=== PATIENT | female | born 1940 | race Caucasian/White ===

== ENCOUNTER 2022-11-24 10:19 | Emergency (ER) | payer MEDICARE ==
[~2022-11-24] VITALS: Ht 152.4 cm; Wt 66.2 kg
[2022-11-24 10:50] LABS: BASOPHILS # (AUTO) 0.1 (0.0-0.1); BASOPHILS % 0.4 % (0.0-1.0); EOSINOPHILS # (AUTO) 0.1 (0.0-0.4); EOSINOPHILS % 0.5 % (0.0-6.0); HEMATOCRIT 47.9 % (34.2-44.1); HEMOGLOBIN 15.6 g/dL (12.0-16.0); LYMPHOCYTES # (AUTO) 1.1 (1.0-3.2); LYMPHOCYTES % 8.9 % (18.0-39.1); MEAN CORPUSCULAR HEMOGLOBIN 29.2 pg (28-32); MEAN CORPUSCULAR HGB CONC 32.6 g/dL (31-35); MEAN CORPUSCULAR VOLUME 89.5 fL (81-99); MONOCYTES # (AUTO) 0.7 (0.2-0.8); MONOCYTES % 5.6 % (4.4-11.3); NEUTROPHILS # (AUTO) 10.7 (2.1-6.9); NEUTROPHILS % 84.1 % (38.7-80.0); PLATELET COUNT 228 x10e3/uL (140-360); RED BLOOD COUNT 5.35 x10e6/uL (3.6-5.1); RED CELL DISTRIBUTION WIDTH 12.8 % (11.7-14.4)
[2022-11-24 11:09] LABS: ALBUMIN 3.7 g/dL (3.5-5.0); ANION GAP 12.7 mmol/L (8-16); CALCIUM 9.4 mg/dL (8.4-10.2); CREATININE, SERUM 0.81 mg/dL (0.57-1.11); POTASSIUM 3.7 mmol/L (3.5-5.1)
== END 2022-11-24 12:43 | disposition home or self-care (01) ==
LOC: ER 10:23
DX: M62.50 Muscle wasting and atrophy, not elsewhere classified, unspecified site (principal); R07.81 Pleurodynia; Z88.8 Allergy status to other drugs, medicaments and biological substances; I10 Essential (primary) hypertension; E03.9 Hypothyroidism, unspecified; Z91.81 History of falling
CPT/HCPCS: 36415; 71045; 72170; 80053; 85025; 93005; 99285; U0002

== ENCOUNTER 2022-11-26 20:35 | Inpatient (IN) | payer MEDICARE ==
[~2022-11-26] VITALS: Ht 152.4 cm; Wt 65.3 kg
[2022-11-26] MEDS ORDERED: ONDANSETRON HCL INJ 2MG/ML 2ML 2 MG/ML VIAL IV STA (21:05)
[2022-11-26] MEDS ORDERED: Morphine 4mg INJECTION 4 MG/ML INJ IV ONE (21:05)
[2022-11-26] MEDS ORDERED: ONDANSETRON HCL INJ 2MG/ML 2ML 2 MG/ML VIAL ONE (21:07)
[2022-11-26] MEDS ORDERED: SODIUM CHLORIDE 0.9% 1000ML 1,000 ML ONE (21:07)
[2022-11-26] MEDS ORDERED: Morphine 4mg INJECTION 4 MG/ML INJ ONE (21:07)
[2022-11-26] MEDS ORDERED: METHYLPREDNISOLONE SOD SUCC 125 MG/2ML VIAL IV STA (21:17)
[2022-11-26] MEDS ORDERED: ALBUTEROL/IPRATROPIUM 3 ML NEB NEB STA (21:17)
[2022-11-26 21:24] LABS: BASOPHILS % 0.2 % (0.0-1.0); HEMATOCRIT 45.5 % (34.2-44.1); HEMOGLOBIN 14.9 g/dL (12.0-16.0); LYMPHOCYTES # (AUTO) 0.9 (1.0-3.2); LYMPHOCYTES % 4.4 % (18.0-39.1); MEAN CORPUSCULAR HEMOGLOBIN 29.2 pg (28-32); MEAN CORPUSCULAR HGB CONC 32.7 g/dL (31-35); MEAN CORPUSCULAR VOLUME 89.2 fL (81-99); MONOCYTES # (AUTO) 0.7 (0.2-0.8); MONOCYTES % 3.3 % (4.4-11.3); NEUTROPHILS # (AUTO) 19.3 (2.1-6.9); NEUTROPHILS % 90.5 % (38.7-80.0); PLATELET COUNT 264 x10e3/uL (140-360); RED CELL DISTRIBUTION WIDTH 13.1 % (11.7-14.4)
[2022-11-26 21:33] LABS: AMPHETAMINES SCREEN,URINE NEGATIVE (NEGATIVE); BENZODIAZEPINES SCREEN,URINE NEGATIVE (NEGATIVE); PHENCYCLIDINE SCREEN,URINE NEGATIVE (NEGATIVE)
[2022-11-26 21:41] LABS: ALBUMIN 3.2 g/dL (3.5-5.0); ALBUMIN/GLOBULIN RATIO 0.7 (0.8-2.0); ANION GAP 17.3 mmol/L (8-16); CALCIUM 9.6 mg/dL (8.4-10.2); CREATININE, SERUM 1.04 mg/dL (0.57-1.11); POTASSIUM 3.3 mmol/L (3.5-5.1)
[2022-11-26 21:47] LABS: CREATINE KINASE MB 0.7 ng/mL (0-5.0)
[2022-11-26] MEDS ORDERED: PIPERACILLIN/TAZOBACTAM 3.375 GM VIAL ONE (22:34)
[2022-11-26] MEDS ORDERED: Morphine 4mg INJECTION 4 MG/ML INJ IV STA (22:38)
[2022-11-27] VITALS (29 sets, daily range): BP systolic 99–141; BP diastolic 55–77
[2022-11-27] MEDS ORDERED: SODIUM CHLORIDE 0.9% 1000ML 1,000 ML IV ONE
[2022-11-27] MEDS ORDERED: IOPAMIDOL 370 MG/ML 100 ML INFUS..BTL INJ ONE (00:13)
[2022-11-27] MEDS ORDERED: FENTANYL CITRATE/PF 100MCG/2 ML INJ IV STA (01:48)
[2022-11-27] MEDS ORDERED: ONDANSETRON HCL INJ 2MG/ML 2ML 2 MG/ML VIAL ONE (02:05)
[2022-11-27] MEDS ORDERED: FENTANYL CITRATE/PF 100MCG/2 ML INJ ONE (02:05)
[2022-11-27 02:40] LABS: ABG PCO2 52 mmHg (35-45); ABG PH 7.22 (7.35-7.45)
[2022-11-27 02:41] LABS: ABG HCO3 21 mmol/L (22-26); ABG PO2 69 mmHg (80-105); ABG TCO2 23
[2022-11-27] MEDS ORDERED: AMLODIPINE BESY10 MG (03:18)
[2022-11-27] MEDS ORDERED: LEVOTHYROXINE50 MC1 (03:18)
[2022-11-27] MEDS ORDERED: PANTOPRAZOLE SO40 MG (03:18)
[2022-11-27 03:55] LABS: ABG HCO3 23 mmol/L (22-26); ABG PCO2 49 mmHg (35-45); ABG PH 7.27 (7.35-7.45); ABG PO2 232 mmHg (80-105); ABG TCO2 24
[2022-11-27] MEDS ORDERED: GUAIFENESIN/DEXTROMETHORPHAN LIQD 5 ML UDC PO PRN (04:00)
[2022-11-27] MEDS ORDERED: POTASSIUM CHLORIDE 20 MEQ TAB CR PO PRN (04:00)
[2022-11-27] MEDS ORDERED: ALBUTEROL SULF 0.083% NEB SOLN 3 ML NEB NEB PRN (04:00)
[2022-11-27] MEDS ORDERED: MELATONIN 3 MG TAB PO PRN (04:00)
[2022-11-27] MEDS ORDERED: HYDRALAZINE HCL 20 MG/ML VIAL IV PRN (04:00)
[2022-11-27] MEDS ORDERED: ACETAMINOPHEN 325 MG SUPP PR PRN (04:00)
[2022-11-27] MEDS ORDERED: LACTATED RINGER'S 1,000 ML INJ ONE (04:00)
[2022-11-27] MEDS ORDERED: Vancomycin IV 1 GM in SODIUM CHLORIDE 0.9% 250ML 250 ML IV ONE (04:00)
[2022-11-27] MEDS ORDERED: DEXTROSE 50% SYRINGE 50 ML IV PRN (04:15)
[2022-11-27] MEDS: DEXTROSE 5%/0.9% SOD CHL 1,000 ML IV SCH ×2 (05:15→17:30)
[2022-11-27] MEDS: LEVOTHYROXINE SODIUM 50 MCG TAB PO SCH (05:15)
[2022-11-27] MEDS: INSULIN REGULAR, HUMAN 100 UNIT/1 ML SQ SCH ×4 (07:30→20:01)
[2022-11-27 07:52] LABS: BASOPHILS % 0.2 % (0.0-1.0); HEMATOCRIT 38.7 % (34.2-44.1); HEMOGLOBIN 12.3 g/dL (12.0-16.0); LYMPHOCYTES # (AUTO) 0.3 (1.0-3.2); LYMPHOCYTES % 2.9 % (18.0-39.1); MEAN CORPUSCULAR HEMOGLOBIN 28.9 pg (28-32); MEAN CORPUSCULAR HGB CONC 31.8 g/dL (31-35); MEAN CORPUSCULAR VOLUME 91.1 fL (81-99); MONOCYTES # (AUTO) 0.3 (0.2-0.8); MONOCYTES % 2.6 % (4.4-11.3); NEUTROPHILS # (AUTO) 9.5 (2.1-6.9); NEUTROPHILS % 94.2 % (38.7-80.0); PLATELET COUNT 179 x10e3/uL (140-360); RED BLOOD COUNT 4.25 x10e6/uL (3.6-5.1); RED CELL DISTRIBUTION WIDTH 13.2 % (11.7-14.4)
[2022-11-27 08:21] LABS: ALBUMIN 2.1 g/dL (3.5-5.0); ALBUMIN/GLOBULIN RATIO 0.7 (0.8-2.0); ANION GAP 13.5 mmol/L (8-16); CALCIUM 7.8 mg/dL (8.4-10.2); CREATINE KINASE 47 IU/L (29-168); CREATININE, SERUM 0.78 mg/dL (0.57-1.11); POTASSIUM 3.5 mmol/L (3.5-5.1)
[2022-11-27] MEDS ORDERED: SODIUM CHLORIDE 0.9% 500ML 500 ML ONE (08:33)
[2022-11-27 08:47] LABS: FREE THYROXINE INDEX 1.5658 (1.4-3.8); THYROID STIMULATING HORMONE 1.813 uIU/mL (0.350-4.940)
[2022-11-27 09:00] LABS: ABG HCO3 22 mmol/L (22-26); ABG PCO2 46 mmHg (35-45); ABG PH 7.29 (7.35-7.45); ABG PO2 202 mmHg (80-105); ABG TCO2 24
[2022-11-27] MEDS ORDERED: FAMOTIDINE 20 MG/2 ML VIAL IV SCH (09:00)
[2022-11-27] MEDS: HEPARIN SOD (PORCINE) 5,000 UNIT/ML VIAL SC SCH ×2 (09:00→20:05)
[2022-11-27 10:58] LABS: BAND NEUTROPHILS % (MANUAL) 5 %; LYMPHOCYTES % (MANUAL) 4 % (19-48); METAMYELOCYTES % (MANUAL) 1 % (0-0); MONOCYTES % (MANUAL) 4 % (3.4-9.0); NEUTROPHILS % (MANUAL) 86 % (40-74); PLATELET ESTIMATE ADEQUATE; PLATELET MORPHOLOGY COMMENT NORMAL; RBC MORPHOLOGY COMMENT NORMAL
[2022-11-27] MEDS ORDERED: LACTATED RINGER'S 500 ML IV ONE (11:45)
[2022-11-27 11:54] LABS: CLARITY,URINE SL CLOUDY (CLEAR); COLOR,URINE YELLOW (YELLOW); LEUKOCYTE ESTERASE ,URINE NEGATIVE (NEGATIVE); NITRITE,URINE NEGATIVE (NEGATIVE); PROTEIN,URINE DIPSTICK 1+ (NEGATIVE)
[2022-11-27 11:55] LABS: KETONES,URINE NEGATIVE (NEGATIVE); URINE UROBILINOGEN 1 mg/dL (0.2 - 1)
[2022-11-27 11:56] LABS: BACTERIA,URINE FEW /HPF; EPITHELIAL CELLS,URINE MODERATE /LPF
[2022-11-27] MEDS: FAMOTIDINE 20 MG/2 ML VIAL IV SCH (12:19)
[2022-11-27 17:37] LABS: CREATINE KINASE MB 1.9 ng/mL (0-5.0)
[2022-11-27] MEDS: Morphine 2mg Syringe 2 MG/ML SYR IV PRN (22:17)
[2022-11-28] VITALS (55 sets, daily range): BP systolic 85–137; BP diastolic 39–103
[2022-11-28] MEDS: LEVOTHYROXINE SODIUM 50 MCG TAB PO SCH (05:10)
[2022-11-28] MEDS: Morphine 2mg Syringe 2 MG/ML SYR IV PRN ×2 (05:12→12:59)
[2022-11-28 06:37] LABS: BASOPHILS # (AUTO) 0.1 (0.0-0.1); BASOPHILS % 0.6 % (0.0-1.0); HEMOGLOBIN 11.8 g/dL (12.0-16.0); LYMPHOCYTES # (AUTO) 0.2 (1.0-3.2); LYMPHOCYTES % 2.2 % (18.0-39.1); MEAN CORPUSCULAR HEMOGLOBIN 29.5 pg (28-32); MEAN CORPUSCULAR HGB CONC 31.9 g/dL (31-35); MEAN CORPUSCULAR VOLUME 92.5 fL (81-99); MONOCYTES # (AUTO) 0.4 (0.2-0.8); MONOCYTES % 3.8 % (4.4-11.3); NEUTROPHILS % 92.8 % (38.7-80.0); PLATELET COUNT 166 x10e3/uL (140-360); RED CELL DISTRIBUTION WIDTH 13.2 % (11.7-14.4)
[2022-11-28 07:08] LABS: ALBUMIN 1.9 g/dL (3.5-5.0); ALBUMIN/GLOBULIN RATIO 0.5 (0.8-2.0); ANION GAP 13.9 mmol/L (8-16); CALCIUM 8.9 mg/dL (8.4-10.2); CREATININE, SERUM 0.74 mg/dL (0.57-1.11); POTASSIUM 3.9 mmol/L (3.5-5.1)
[2022-11-28] MEDS: INSULIN REGULAR, HUMAN 100 UNIT/1 ML SQ SCH ×4 (07:30→20:20)
[2022-11-28 07:52] LABS: BAND NEUTROPHILS % (MANUAL) 5 %; LYMPHOCYTES % (MANUAL) 2 % (19-48); MONOCYTES % (MANUAL) 1 % (3.4-9.0); NEUTROPHILS % (MANUAL) 92 % (40-74)
[2022-11-28 07:53] LABS: PLATELET ESTIMATE ADEQUATE; PLATELET MORPHOLOGY COMMENT NORMAL; RBC MORPHOLOGY COMMENT NORMAL
[2022-11-28] MEDS: FAMOTIDINE 20 MG/2 ML VIAL IV SCH (10:27)
[2022-11-28] MEDS: HEPARIN SOD (PORCINE) 5,000 UNIT/ML VIAL SC SCH ×2 (10:28→21:00)
[2022-11-28] MEDS: ONDANSETRON HCL INJ 2MG/ML 2ML 2 MG/ML VIAL IV PRN ×2 (12:59→13:06)
[2022-11-28] MEDS ORDERED: VECURONIUM BROMIDE FOR INJ 20 MG VIAL ONE (13:11)
[2022-11-28] MEDS ORDERED: MIDAZOLAM HCL 2 MG/2 ML VIAL ONE (13:11)
[2022-11-28] MEDS ORDERED: SUCCINYLCHOLINE CHLORIDE 20 MG/ML 10ML VIAL ONE (13:11)
[2022-11-28] MEDS ORDERED: WATER STERILE 10 ML VIAL ONE (13:11)
[2022-11-28] MEDS ORDERED: ETOMIDATE 2 MG/ML 10 ML INJ IV ONE (13:11)
[2022-11-28] MEDS: DEXTROSE 5%/0.9% SOD CHL 1,000 ML IV SCH ×3 (13:59→21:31)
[2022-11-29] VITALS (51 sets, daily range): BP systolic 79–131; BP diastolic 49–95
[2022-11-29] MEDS: LEVOTHYROXINE SODIUM 50 MCG TAB PO SCH (06:00)
[2022-11-29 06:18] LABS: BASOPHILS % 0.1 % (0.0-1.0); HEMATOCRIT 34.1 % (34.2-44.1); HEMOGLOBIN 10.5 g/dL (12.0-16.0); LYMPHOCYTES # (AUTO) 0.6 (1.0-3.2); LYMPHOCYTES % 5.7 % (18.0-39.1); MEAN CORPUSCULAR HEMOGLOBIN 28.8 pg (28-32); MEAN CORPUSCULAR HGB CONC 30.8 g/dL (31-35); MEAN CORPUSCULAR VOLUME 93.7 fL (81-99); MONOCYTES # (AUTO) 0.3 (0.2-0.8); MONOCYTES % 3.4 % (4.4-11.3); NEUTROPHILS # (AUTO) 8.8 (2.1-6.9); NEUTROPHILS % 90.5 % (38.7-80.0); PLATELET COUNT 168 x10e3/uL (140-360); RED BLOOD COUNT 3.64 x10e6/uL (3.6-5.1); RED CELL DISTRIBUTION WIDTH 13.6 % (11.7-14.4)
[2022-11-29 06:37] LABS: ALBUMIN 1.7 g/dL (3.5-5.0); ALBUMIN/GLOBULIN RATIO 0.5 (0.8-2.0); ANION GAP 10.1 mmol/L (8-16); CALCIUM 7.2 mg/dL (8.4-10.2); CREATININE, SERUM 0.6 mg/dL (0.57-1.11); POTASSIUM 3.1 mmol/L (3.5-5.1)
[2022-11-29] MEDS: INSULIN REGULAR, HUMAN 100 UNIT/1 ML SQ SCH ×4 (07:30→23:57)
[2022-11-29] MEDS: FAMOTIDINE 20 MG/2 ML VIAL IV SCH (08:55)
[2022-11-29] MEDS ORDERED: ETOMIDATE 2 MG/ML 10 ML INJ IV ONE (10:54)
[2022-11-29] MEDS ORDERED: LIDOCAINE HCL 2% LOCAL INJ 5 ML SDV VIAL INJ ONE (10:54)
[2022-11-29] MEDS ORDERED: ROCURONIUM BROMIDE 10 MG/ML 5ML VIAL IV ONE (10:54)
[2022-11-29] MEDS ORDERED: ONDANSETRON HCL INJ 2MG/ML 2ML 2 MG/ML VIAL ONE (10:54)
[2022-11-29] MEDS ORDERED: SEVOFLURANE INHAL SOLN 250 ML PEN BTL ONE (10:54)
[2022-11-29] MEDS ORDERED: EPHEDRINE SULFATE INJ 50 MG/ML VIAL ONE (10:54)
[2022-11-29] MEDS ORDERED: PROPOFOL IV EMULSION 10 MG/ML 20 ML VIAL ONE (10:54)
[2022-11-29] MEDS ORDERED: POVIDONE IODINE 0.05% 0.05 % ML PO ONE (10:54)
[2022-11-29] MEDS ORDERED: BUPIVACAINE 0.5%/EPI 30 ML SDV INJ ONE (12:57)
[2022-11-29] MEDS ORDERED: FENTANYL CITRATE/PF 100MCG/2 ML INJ ONE ×2 (13:31→15:40)
[2022-11-29] MEDS ORDERED: SUGAMMADEX SODIUM 200 MG/2 ML VIAL IV ONE (14:18)
[2022-11-29] MEDS ORDERED: SODIUM CHLORIDE 0.9% 1000ML 1,000 ML IV SCH (15:00)
[2022-11-29] MEDS: POTASSIUM CHLORIDE 20MEQ/100ML 100 ML IV SCH ×2 (15:49→15:53)
[2022-11-29] MEDS: ACETAMINOPHEN 1000 MG/100 ML IV PRN (16:13)
[2022-11-29] MEDS ORDERED: FENTANYL 2000MCG/NS 250 250 ML IV PRN (16:30)
[2022-11-29] MEDS ORDERED: PROPOFOL IV EMULSION 10MG/ML 100 ML IV PRN (16:30)
[2022-11-29] MEDS: SODIUM CHLORIDE 0.45% 1,000 ML IV SCH (17:14)
[2022-11-29 17:18] LABS: ABG HCO3 28 mmol/L (22-26); ABG PCO2 56 mmHg (35-45); ABG PH 7.31 (7.35-7.45); ABG PO2 71 mmHg (80-105); ABG TCO2 29
[2022-11-29 18:01] LABS: ABG HCO3 25 mmol/L (22-26); ABG PCO2 35 mmHg (35-45); ABG PH 7.46 (7.35-7.45); ABG PO2 92 mmHg (80-105); ABG TCO2 26
[2022-11-30] VITALS (44 sets, daily range): BP systolic 99–138; BP diastolic 49–101
[2022-11-30] MEDS: SODIUM CHLORIDE 0.45% 1,000 ML IV SCH ×3 (02:10→19:51)
[2022-11-30] MEDS: INSULIN REGULAR, HUMAN 100 UNIT/1 ML SQ SCH ×3 (06:00→17:26)
[2022-11-30 06:34] LABS: BASOPHILS % 0.1 % (0.0-1.0); HEMATOCRIT 29.2 % (34.2-44.1); HEMOGLOBIN 9.2 g/dL (12.0-16.0); LYMPHOCYTES # (AUTO) 0.7 (1.0-3.2); MEAN CORPUSCULAR HGB CONC 31.5 g/dL (31-35); MEAN CORPUSCULAR VOLUME 92.1 fL (81-99); MONOCYTES # (AUTO) 0.3 (0.2-0.8); MONOCYTES % 3.4 % (4.4-11.3); NEUTROPHILS # (AUTO) 6.4 (2.1-6.9); PLATELET COUNT 156 x10e3/uL (140-360); RED BLOOD COUNT 3.17 x10e6/uL (3.6-5.1); RED CELL DISTRIBUTION WIDTH 13.4 % (11.7-14.4)
[2022-11-30 07:40] LABS: ALBUMIN 1.7 g/dL (3.5-5.0); ALBUMIN/GLOBULIN RATIO 0.6 (0.8-2.0); ANION GAP 13.9 mmol/L (8-16); CALCIUM 7.4 mg/dL (8.4-10.2); CREATININE, SERUM 0.66 mg/dL (0.57-1.11)
[2022-11-30 07:43] LABS: POTASSIUM 2.9 mmol/L (3.5-5.1)
[2022-11-30] MEDS ORDERED: POTASSIUM CHLORIDE 20MEQ/100ML 200 ML IV ONE ×2 (07:45→17:00)
[2022-11-30] MEDS: MUPIROCIN 2% OINT 22 GM TUBE TOP SCH ×2 (09:25→19:51)
[2022-11-30] MEDS: ACETAMINOPHEN 1000 MG/100 ML IV PRN (10:39)
[2022-11-30 12:11] LABS: ABG PCO2 34 mmHg (35-45); ABG PH 7.43 (7.35-7.45)
[2022-11-30 12:12] LABS: ABG HCO3 23 mmol/L (22-26); ABG PO2 93 mmHg (80-105); ABG TCO2 24
[2022-11-30 14:31] LABS: ABG HCO3 22 mmol/L (22-26); ABG PCO2 33 mmHg (35-45); ABG PH 7.42 (7.35-7.45); ABG PO2 88 mmHg (80-105); ABG TCO2 23
[2022-11-30] MEDS: HYDROMORPHONE 1MG/1ML INJ IV PRN (19:52)
[2022-12-01] VITALS (21 sets, daily range): BP systolic 99–136; BP diastolic 49–85
[2022-12-01] MEDS: HYDROMORPHONE 1MG/1ML INJ IV PRN ×2 (00:13→21:28)
[2022-12-01] MEDS: SODIUM CHLORIDE 0.45% 1,000 ML IV SCH (05:04)
[2022-12-01] MEDS: INSULIN REGULAR, HUMAN 100 UNIT/1 ML SQ SCH ×4 (06:00→16:53)
[2022-12-01 06:48] LABS: BASOPHILS % 0.1 % (0.0-1.0); EOSINOPHILS # (AUTO) 0.1 (0.0-0.4); EOSINOPHILS % 1.1 % (0.0-6.0); HEMATOCRIT 32.8 % (34.2-44.1); HEMOGLOBIN 10.6 g/dL (12.0-16.0); LYMPHOCYTES # (AUTO) 0.8 (1.0-3.2); LYMPHOCYTES % 10.4 % (18.0-39.1); MEAN CORPUSCULAR HEMOGLOBIN 29.1 pg (28-32); MEAN CORPUSCULAR HGB CONC 32.3 g/dL (31-35); MEAN CORPUSCULAR VOLUME 90.1 fL (81-99); MONOCYTES # (AUTO) 0.3 (0.2-0.8); MONOCYTES % 4.1 % (4.4-11.3); NEUTROPHILS # (AUTO) 6.2 (2.1-6.9); NEUTROPHILS % 83.1 % (38.7-80.0); PLATELET COUNT 175 x10e3/uL (140-360); RED BLOOD COUNT 3.64 x10e6/uL (3.6-5.1); RED CELL DISTRIBUTION WIDTH 13.6 % (11.7-14.4)
[2022-12-01 07:07] LABS: ALBUMIN 1.7 g/dL (3.5-5.0); ALBUMIN/GLOBULIN RATIO 0.6 (0.8-2.0); ANION GAP 10.6 mmol/L (8-16); CALCIUM 7.4 mg/dL (8.4-10.2); CREATININE, SERUM 0.6 mg/dL (0.57-1.11)
[2022-12-01 07:12] LABS: POTASSIUM 3.6 mmol/L (3.5-5.1)
[2022-12-01] MEDS: MUPIROCIN 2% OINT 22 GM TUBE TOP SCH ×2 (08:09→19:15)
[2022-12-01] MEDS: ONDANSETRON HCL INJ 2MG/ML 2ML 2 MG/ML VIAL IV PRN (13:59)
[2022-12-01 15:19] LABS: ABG HCO3 23 mmol/L (22-26); ABG PCO2 35 mmHg (35-45); ABG PH 7.42 (7.35-7.45); ABG PO2 97 mmHg (80-105); ABG TCO2 24
[2022-12-01] MEDS: D5.45%NS/KCL 20MEQ 1,000 ML IV SCH (15:47)
[2022-12-02] VITALS (23 sets, daily range): BP systolic 104–159; BP diastolic 60–121
[2022-12-02] MEDS: D5.45%NS/KCL 20MEQ 1,000 ML IV SCH ×2 (03:05→16:17)
[2022-12-02] MEDS: HYDROMORPHONE 1MG/1ML INJ IV PRN ×2 (04:10→20:15)
[2022-12-02] MEDS: INSULIN REGULAR, HUMAN 100 UNIT/1 ML SQ SCH ×4 (06:00→18:00)
[2022-12-02 06:57] LABS: BASOPHILS % 0.1 % (0.0-1.0); EOSINOPHILS # (AUTO) 0.2 (0.0-0.4); EOSINOPHILS % 3.2 % (0.0-6.0); HEMATOCRIT 29.2 % (34.2-44.1); HEMOGLOBIN 9.4 g/dL (12.0-16.0); LYMPHOCYTES # (AUTO) 0.8 (1.0-3.2); LYMPHOCYTES % 10.6 % (18.0-39.1); MEAN CORPUSCULAR HEMOGLOBIN 29.3 pg (28-32); MEAN CORPUSCULAR HGB CONC 32.2 g/dL (31-35); MONOCYTES # (AUTO) 0.4 (0.2-0.8); MONOCYTES % 4.8 % (4.4-11.3); NEUTROPHILS # (AUTO) 5.7 (2.1-6.9); NEUTROPHILS % 79.4 % (38.7-80.0); PLATELET COUNT 164 x10e3/uL (140-360); RED BLOOD COUNT 3.21 x10e6/uL (3.6-5.1); RED CELL DISTRIBUTION WIDTH 13.5 % (11.7-14.4)
[2022-12-02 08:00] LABS: ALBUMIN 1.5 g/dL (3.5-5.0); ALBUMIN/GLOBULIN RATIO 0.5 (0.8-2.0); ANION GAP 8.6 mmol/L (8-16); CALCIUM 7.1 mg/dL (8.4-10.2); CREATININE, SERUM 0.55 mg/dL (0.57-1.11); POTASSIUM 3.6 mmol/L (3.5-5.1)
[2022-12-02] MEDS: MUPIROCIN 2% OINT 22 GM TUBE TOP SCH ×2 (09:25→19:15)
[2022-12-03] VITALS (21 sets, daily range): BP systolic 98–134; BP diastolic 55–80
[2022-12-03] MEDS: D5.45%NS/KCL 20MEQ 1,000 ML IV SCH ×3 (00:49→22:40)
[2022-12-03] MEDS: HYDROMORPHONE 1MG/1ML INJ IV PRN ×5 (04:06→23:24)
[2022-12-03] MEDS: INSULIN REGULAR, HUMAN 100 UNIT/1 ML SQ SCH ×5 (06:00→23:33)
[2022-12-03 06:56] LABS: BASOPHILS % 0.1 % (0.0-1.0); EOSINOPHILS # (AUTO) 0.3 (0.0-0.4); EOSINOPHILS % 2.9 % (0.0-6.0); HEMATOCRIT 33.9 % (34.2-44.1); HEMOGLOBIN 10.8 g/dL (12.0-16.0); LYMPHOCYTES # (AUTO) 1.3 (1.0-3.2); LYMPHOCYTES % 13.5 % (18.0-39.1); MEAN CORPUSCULAR HEMOGLOBIN 28.8 pg (28-32); MEAN CORPUSCULAR HGB CONC 31.9 g/dL (31-35); MEAN CORPUSCULAR VOLUME 90.4 fL (81-99); MONOCYTES # (AUTO) 0.5 (0.2-0.8); MONOCYTES % 4.9 % (4.4-11.3); NEUTROPHILS # (AUTO) 7.3 (2.1-6.9); PLATELET COUNT 226 x10e3/uL (140-360); RED BLOOD COUNT 3.75 x10e6/uL (3.6-5.1); RED CELL DISTRIBUTION WIDTH 13.5 % (11.7-14.4)
[2022-12-03 07:31] LABS: ALANINE AMINOTRANSFERASE 18 IU/L (0-55); ALBUMIN 1.6 g/dL (3.5-5.0); ALBUMIN/GLOBULIN RATIO 0.6 (0.8-2.0); ALKALINE PHOSPHATASE 73 IU/L (40-150); ANION GAP 8.6 mmol/L (8-16); BLOOD UREA NITROGEN < 5 mg/dL (7-26); BUN/CREATININE RATIO 10 (6-25); CALCIUM 7.3 mg/dL (8.4-10.2); CARBON DIOXIDE 28 mmol/L (22-29); CHLORIDE 106 mmol/L (98-107); CREATININE, SERUM 0.52 mg/dL (0.57-1.11); GLUCOSE 121 mg/dL (74-118); POTASSIUM 3.6 mmol/L (3.5-5.1); SODIUM 139 mmol/L (136-145)
[2022-12-03] MEDS: MUPIROCIN 2% OINT 22 GM TUBE TOP SCH ×2 (09:07→19:08)
[2022-12-03] MEDS ORDERED: ALBUTEROL SULF 0.083% NEB SOLN 3 ML NEB NEB PRN (13:00)
[2022-12-03] MEDS: ONDANSETRON HCL INJ 2MG/ML 2ML 2 MG/ML VIAL IV PRN (15:28)
[2022-12-04] VITALS (9 sets, daily range): BP systolic 129–148; BP diastolic 65–86
[2022-12-04] MEDS: INSULIN REGULAR, HUMAN 100 UNIT/1 ML SQ SCH ×3 (06:00→16:34)
[2022-12-04] MEDS: MUPIROCIN 2% OINT 22 GM TUBE TOP SCH ×2 (07:10→19:15)
[2022-12-04] MEDS: HYDROMORPHONE 1MG/1ML INJ IV PRN ×3 (07:51→21:27)
[2022-12-04] MEDS: D5.45%NS/KCL 20MEQ 1,000 ML IV SCH (12:35)
[2022-12-05] VITALS (12 sets, daily range): BP systolic 109–148; BP diastolic 66–96
[2022-12-05] MEDS: D5.45%NS/KCL 20MEQ 1,000 ML IV SCH (01:50)
[2022-12-05] MEDS: HYDROMORPHONE 1MG/1ML INJ IV PRN ×2 (01:51→19:01)
[2022-12-05] MEDS: INSULIN REGULAR, HUMAN 100 UNIT/1 ML SQ SCH ×4 (06:00→16:55)
[2022-12-05 07:01] LABS: BASOPHILS % 0.2 % (0.0-1.0); EOSINOPHILS # (AUTO) 0.2 (0.0-0.4); EOSINOPHILS % 2.3 % (0.0-6.0); HEMATOCRIT 33.1 % (34.2-44.1); HEMOGLOBIN 10.6 g/dL (12.0-16.0); LYMPHOCYTES # (AUTO) 1.2 (1.0-3.2); LYMPHOCYTES % 11.8 % (18.0-39.1); MEAN CORPUSCULAR HEMOGLOBIN 28.9 pg (28-32); MEAN CORPUSCULAR VOLUME 90.2 fL (81-99); MONOCYTES # (AUTO) 0.6 (0.2-0.8); MONOCYTES % 5.8 % (4.4-11.3); NEUTROPHILS # (AUTO) 7.7 (2.1-6.9); NEUTROPHILS % 78.5 % (38.7-80.0); PLATELET COUNT 258 x10e3/uL (140-360); RED BLOOD COUNT 3.67 x10e6/uL (3.6-5.1); RED CELL DISTRIBUTION WIDTH 13.4 % (11.7-14.4)
[2022-12-05 07:19] LABS: ALANINE AMINOTRANSFERASE 25 IU/L (0-55); ALBUMIN 1.6 g/dL (3.5-5.0); ALBUMIN/GLOBULIN RATIO 0.5 (0.8-2.0); ALKALINE PHOSPHATASE 81 IU/L (40-150); BLOOD UREA NITROGEN < 5 mg/dL (7-26); CALCIUM 7.7 mg/dL (8.4-10.2); CARBON DIOXIDE 29 mmol/L (22-29); CHLORIDE 103 mmol/L (98-107); CREATININE, SERUM 0.54 mg/dL (0.57-1.11); GLUCOSE 110 mg/dL (74-118); SODIUM 138 mmol/L (136-145)
[2022-12-05 07:20] LABS: BUN/CREATININE RATIO 9 (6-25)
[2022-12-05] MEDS: MUPIROCIN 2% OINT 22 GM TUBE TOP SCH ×2 (08:10→20:24)
[2022-12-05] MEDS ORDERED: ZOLPIDEM TARTRATE 5 MG TAB PO PRN (23:15)
[2022-12-06] VITALS (11 sets, daily range): BP systolic 117–148; BP diastolic 57–77
[2022-12-06] MEDS: D5.45%NS/KCL 20MEQ 1,000 ML IV SCH ×2 (00:25→04:44)
[2022-12-06] MEDS: INSULIN REGULAR, HUMAN 100 UNIT/1 ML SQ SCH ×3 (06:00→12:00)
== END 2022-12-06 17:02 | DRG 853 ==
LOC: ER 20:50 → ERHOLD 23:57 → ICU 11-27 03:00
PROVIDERS: ADMIT Internal Medicine; ATTEND Internal Medicine
PROC: 0FT44ZZ Resection of Gallbladder, Percutaneous Endoscopic Approach (ICD-10-PCS; principal; 2022-11-28)
PROC: 3E1M48Z Irrigation of Peritoneal Cavity using Irrigating Substance, Percutaneous Endoscopic Approach (ICD-10-PCS; 2022-11-28)
PROC: 0BH17EZ Insertion of Endotracheal Airway into Trachea, Via Natural or Artificial Opening (ICD-10-PCS; 2022-11-29)
PROC: 5A1935Z Respiratory Ventilation, Less than 24 Consecutive Hours (ICD-10-PCS; 2022-11-29)
DX: A41.9 Sepsis, unspecified organism (principal); J96.21 Acute and chronic respiratory failure with hypoxia; J96.22 Acute and chronic respiratory failure with hypercapnia; K65.9 Peritonitis, unspecified; E87.20 Acidosis, unspecified; K80.00 Calculus of gallbladder with acute cholecystitis without obstruction; R65.20 Severe sepsis without septic shock; G72.9 Myopathy, unspecified; I10 Essential (primary) hypertension; E03.9 Hypothyroidism, unspecified; N83.202 Unspecified ovarian cyst, left side; D64.9 Anemia, unspecified; K82.A1 Gangrene of gallbladder in cholecystitis; R13.12 Dysphagia, oropharyngeal phase; Z20.822 Contact with and (suspected) exposure to COVID-19; Z86.16 Personal history of COVID-19
CPT/HCPCS: 36415; 36569; 36600; 71045; 71260; 74177; 74230; 76705; 76856; 80053; 80307; 81001; 82150; 82550; 82553; 82805; 82948; 83605; 83690; 83880; 84436; 84443; 84479; 84484; 85025; 85379; 87040; 87086; 88304; 93005; 93306; 93970; 94003; 94640; 94660; 94799; 99252; 99285; C1766; J0330; J0456; J1170; J1644; J2001; J2250; J2270; J2405; J2543; J2930; J3010; J3370; J3480; J7030; J7040; J7042; J7050; J7121; J7799; Q9967